=== PATIENT | female | born 1975 | race African-American/Black ===

== ENCOUNTER → 2017-04-09 | Outpatient (CLI) | payer OTHER ==
--- NOTE | ~2017-04-09 | US77 ---
[facility] A Service of [facility] & [facility] RADIOLOGY TEXT RESULTS PATIENT: BETSY ACEVEDO LOCATION: [facility] : 75 UNIT #: [id number] AGE: [address]: LINDY PARRA SEX: F ORDER DR: [id number] [facility] [address] [place], [place] [address] [id number] O MR#: [id number] Acc #: [id number] NAME: BETSY ACEVEDO : 1975 SEX: F STUDY DATE/TIME: 04/09/2017 12:28 UNIT: [facility] ROOM: STUDY DESCRIPTION: US Kidney Bilateral Complete Attending Physician: Scott Parra M.D. Referring Physician: Scott Parra M.D. Ordering Physician: Scott Parra M.D. Primary Care Physician: Denisa Pedro MEDICAL IMAGING REPORT This report is preliminary unless electronic signature is present EXAM Renal ultrasound, 04/09/17. HISTORY Chronic kidney disease stage III, follow up. FINDINGS The right kidney measures 9.2 cm while the left kidney measures 8.9 cm in longitudinal dimensions. There is no evidence of hydronephrosis or nephrolithiasis. No cystic or solid mass lesions were seen on either kidney. There is slight increase in renal cortical echogenicity characteristic of medical renal disease. Images of the bladder are normal. IMPRESSION 1. Bilateral increase in renal cortical echogenicity characteristic of medical renal disease. No evidence of hydronephrosis. 2. Images of the bladder are normal. Dictated by... Rene Ramirez M.D. THIS IS AN ELECTRONICALLY VERIFIED REPORT Rene Ramirez M.D. at 04/09/2017 5:14 PM JEREMIAS/[email or web address] TD: 04/09/2017 15:28 JOB #: [id number] MEDICAL IMAGING REPORT Page 1 of 1 COPY
== END | disposition home or self-care (01) ==
LOC: CWCC 11:57
DX: N18.3 Chronic kidney disease, stage 3 (moderate) (principal)
CPT/HCPCS: 76770